=== PATIENT | male | born 1985 | race African-American/Black ===

== ENCOUNTER 2021-06-08 14:35 | Outpatient (CLI) | payer OTHER, SELFPAY | END 2021-06-08 14:36 | disposition home or self-care (01) | LOC: ANHAUDASC 14:36 | PROVIDERS: PCP Emergency Medicine; Visit Provider Otolaryngology | DX: H65.90 Unspecified nonsuppurative otitis media, unspecified ear (principal); H90.0 Conductive hearing loss, bilateral | CPT/HCPCS: 92557; 92567 ==

== ENCOUNTER → 2021-07-25 00:48 | Outpatient (CLI) | payer OTHER, SELFPAY ==
[2021-07-25 11:57] LABS: SARS-CoV-2 RNA PCR Negative
== END ==
PROVIDERS: PCP Emergency Medicine; Visit Provider Otolaryngology
DX: Z01.812 Encounter for preprocedural laboratory examination (principal); Z20.822 Contact with and (suspected) exposure to COVID-19
CPT/HCPCS: C9803; U0003; U0005

== ENCOUNTER 2021-07-28 00:21 | Day surgery (SDC) | payer OTHER, SELFPAY ==
[2021-07-20 14:50] VITALS: BMI 29.5
--- NOTE | 2021-07-20 14:57 | PC.NURSE ---
Report to the Outpatient Waiting Room, entrance under the green pavilion located off [facility], at time 0730 on date 07/28/21. OR Time: 0930. - You and your visitor will be asked a series of questions to screen for COVID 19 for your protection. - A mask is required within the hospital. One visitor will be allowed to accompany the patient into the hospital. Patients visitor will be instructed to remain with patient at all times or leave the building. We will allow the visitor to come back to the postoperative area when patient is ready. Preoperative COVID Testing Requirements: COVDI TEST 07/25 AT 0815 No COVID Test needed if: (proof is required; if not received patient will have Rapid Test prior to entry) - Patient has received COVID Vaccine at least 14 days prior to procedure date or - Patient has positive COVID test result within last 90 days of surgery date. COVID Test needed if above criteria is not met If not COVID vaccinated a COVID test must be conducted within 72 hours of surgery and patient is asked to isolate self from time of testing until procedure. You will go to the [facility] for your COVID testing. The [facility] site is located at the corner of [address] [facility]. You will only be called if COVID results are positive and your surgeon may reschedule your elective surgery date. Patients may have clear liquids (water, carbonated beverages, clear teas, apple juice) until 3 hours prior to surgery with a maximum of 20 ounces. - No food from midnight until time of surgery Take the following medications with a SIP of water the morning of surgery: NONE Medications to discontinue per physician: N/A Date to take last dose: N/A Please no make-up, nail ukrainian, hairspray, perfume, deodorant, or body powder the day of surgery. No jewelry (including any body piercings) or valuables the day of surgery, leave them at home. Please take a shower or bath the night before, or the morning of, surgery with an antibacterial soap. Wear comfortable, loose fitting clothing. - Jewelry must be removed prior to entering the operating room. Rings and piercings that are not removed may be cut off. - The hospital will not accept responsibility for valuables. - Please leave all valuables, including medications, at home the day of surgery. If you are going home after surgery, a licensed route sales delivery drivers supervisor must drive you home. - NO public transportation without another adult. - We recommend that an adult stay with you for 24 hours following discharge. - We also recommend that you do not drive, make important decision, drink alcoholic beverages, or take any drugs that were not prescribed by your health care provider for at least 24 hours after your discharge time. Follow any additional instructions given to you from your surgeon. Telephone instructions given to BLANE HUNTER and asked if any additional questions and then verbalized understanding. Patient advised to call surgeon office or pre surgery nurse liaison [phone] if any additional questions.
--- NOTE | 2021-07-27 06:27 | PM.HPGS ---
History of Present Illness History of Present Illness Consent: Risks, benefits, and alternatives have been discussed and questions answered. Patient agrees to proceed with procedure. Chief complaint: Peewee chronic Otitis Media Narrative: Ruddy Gonzalez is a 36 year old male with a long history of fluid in his ears unresponsive to antibiotics Review of Systems Review of Systems: All systems reviewed & are unremarkable except as noted in HPI and below PMFSH Surgical History Surgical History History of placement of ear tubes Social History Social History Smoking status: Never smoker Alcohol intake: current Alcohol use details: A COUPLE TIMES/YEAR Substance use: never Substance use type: does not use Gender identity (if verbalized by the patient): Male Spiritual care concerns: No Comments social family surgical medical history all un Meds Home Medications and Allergies Home Medications Medication Instructions Recorded Confirmed Type No Home Medications 07/20/21 07/20/21 History Allergies Allergy/AdvReac Type Severity Reaction Status Date / Time nut - unspecified Allergy Unknown THROAT Verified 07/20/21 14:50 SWELLING Sulfa (Sulfonamide Allergy Unknown UNSURE OF Verified 07/20/21 14:50 Antibiotics) REACTION White Fish Allergy Unknown ALL FISH Uncoded 07/20/21 14:50 EXCEPT SHRIMP-THROAT SWELLING Exam Narrative: chest clear heart murmurs abdomen soft extremities negative TMs retracted with fluid Assessment and Plan Additional Plan plan bilateral myringotomy with insertion of tubes
[2021-07-28] VITALS (8 sets, daily range): BP systolic 147–160; BP diastolic 78–89; PULSE 67–88; RESP 14–28; TEMP 36.3–36.4; O2SAT 97–100
--- NOTE | 2021-07-28 06:17 | WPDHPUPDATE1 ---
History and Physical Update Update Date/Time: 07/28/21 06:17 History and Physical has been reviewed, including an updated exam of the patient. There are NO changes in the patient's condition. Risks, benefits, and alternatives have been discussed and questions answered. Patient agrees to proceed with procedure.
[2021-07-28] MEDS: LACTATED RINGERS 1,000 ML 30 ML IV CONT (09:00)
--- NOTE | 2021-07-28 09:16 | P.PNAN_ITS ---
Anes - Initial Pre Proc Eval Procedure: Operation Date: 07/28/21 09:30 Proposed Procedures p Bilateral Myringotomy,Insertion Of Tubes - Dale Mcclain MD Date/Time: 07/28/21 09:16 Surgeon: Dale Mcclain MD Pre Op Diagnosis: Peewee chronic Otitis Media Patient Data Age: 36 Gender: M Height: 1.88 m Weight: 106.6 kg Last Vital Signs Temp 36.4 C 07/28/21 08:47 Pulse 78 07/28/21 08:47 Resp 20 07/28/21 08:47 BP 160/84 H 07/28/21 08:47 Pulse Ox 99 07/28/21 08:47 Allergies Allergy/AdvReac Type Severity Reaction Status Date / Time nut - unspecified Allergy Unknown THROAT Verified 07/28/21 08:46 SWELLING Sulfa (Sulfonamide Allergy Unknown UNSURE OF Verified 07/28/21 08:46 Antibiotics) REACTION White Fish Allergy Unknown ALL FISH Uncoded 07/28/21 08:46 EXCEPT SHRIMP-THROAT SWELLING Home Medications Medication Instructions Recorded Confirmed Type No Home Medications 07/20/21 07/28/21 History Patient hx anesthesia problems: none Family hx anesthesia problems: none Results Review: All pre-operative results and documents have been reviewed as part of the pre-operative evaluation. [facility] Past Medical History Medical History (Updated 07/28/21 @ 09:16 by Tamir Peña MD) Obesity Surgical History Surgical History (Updated 07/28/21 @ 09:16 by Tamir Peña MD) History of placement of ear tubes Hx of tonsillectomy Social History Social History Smoking status: Never smoker Alcohol intake: current Alcohol use details: A COUPLE TIMES/YEAR Substance use: never Substance use type: does not use Living arrangements: with family Gender identity (if verbalized by the patient): Male Spiritual care concerns: No Anes - Eval Final PreProcedure Day of Procedure 07/28/21 09:16 Patient weight: obese Heart: regular rate and rhythm Lungs: clear to auscultation Airway: Mallampati scale class II Neurological: alert and oriented Last oral intake: >/= 8 hours ASA classification: II Emergent: no Anesthetic plan: proceed Anesthesia type and monitoring: general and standard monitoring Results Review: All pre-operative results and documents have been reviewed as part of the pre-operative evaluation. Informed Consent: The patient's anesthetic plan and its attendant risks and benefits were discussed with the patient/family/POA. Questions were solicited and answers provided to the satisfaction of the patient/family/POA.
[2021-07-28] MEDS: CIPROFLOXACIN HCL 0.3% OP SOLN 2.5 ML BTL 4 DROP EACH EAR (09:33)
--- NOTE | 2021-07-28 09:38 | W.PM.PROC2 ---
Procedure Note - Detailed Date of Procedure 07/28/21 Pre-op Diagnosis Peewee chronic Otitis Media Post-op Diagnosis Same Procedure Performed Bilateral myringotomy and insertion of T tubes Surgeon Dale Mcclain MD Description of Procedure Patient prepped general anesthesia the right ear was inspected markedly atelectatic an anterosuperior incision made and T-tube inserted the thickness of the tympanic member was markedly thinned procedure repeat any of the side with insertion of a T2
== END 2021-07-28 11:30 | disposition home or self-care (01) ==
PROVIDERS: PCP Emergency Medicine; Visit Provider Otolaryngology
PROC: (CPT 69436; principal; 2021-07-28 09:30)
DX: H66.93 Otitis media, unspecified, bilateral (principal); E66.9 Obesity, unspecified; Z68.30 Body mass index [BMI] 30.0-30.9, adult
CPT/HCPCS: 69436; A9270; J1100; J2250; J2405; J2704; J7120